=== PATIENT | female | born 1980 | race Caucasian/White ===

== ENCOUNTER 2018-08-31 15:00 | Outpatient (CLI) | payer MEDICAID ==
[2018-08-31] MEDS: DIPHENHYDRAMINE 50 MG CAP PO (16:18)
[2018-08-31] MEDS: LACTATED RINGER'S 1,000 ML IV ×2 (19:00→20:07)
[2018-08-31] MEDS: TERBUTALINE 1 MG/ML INJ SC (20:08)
== END 2018-08-31 21:15 | disposition home or self-care (01) ==
LOC: OBT 15:00 → L-D 15:22 → OBT 21:15
DX: O62.9 Abnormality of forces of labor, unspecified (principal); O09.513 Supervision of elderly primigravida, third trimester; Z3A.30 30 weeks gestation of pregnancy
CPT/HCPCS: 36415; 76817; 76818; 82731; 96360; 96361; 96372

== ENCOUNTER 2018-09-29 14:54 | Inpatient (IN) | payer MEDICAID ==
[2018-09-29 15:48] LABS: ADD UMIC NO; UR ASCORBIC ACID 20 mg/dL (NEGATIVE); UR BILIRUBIN (Dip) NEGATIVE (NEGATIVE); UR BLOOD (Dip) NEGATIVE (NEGATIVE); UR CLARITY CLEAR (CLEAR); UR COLOR YELLOW (YELLOW); UR GLUCOSE (Dip) NEGATIVE (NEGATIVE); UR KETONES (Dip) NEGATIVE (NEGATIVE); UR LEUKOCYTE ESTERASE (Dip) NEGATIVE Leu/ul (NEGATIVE); UR NITRITE (Dip) NEGATIVE (NEGATIVE); UR SPECIFIC GRAVITY (Dip) 1.014 (1.003-1.030); UR TOTAL PROTEIN (Dip) NEGATIVE (NEGATIVE); UR UROBILINOGEN (Dip) NEGATIVE (NEGATIVE)
[2018-09-29] MEDS: LACTATED RINGER'S 1,000 ML IV (16:52)
[2018-09-29] MEDS: MAGNESIUM SULFATE 4 GM/100 ML 100 ML IV (16:54)
[2018-09-29] MEDS: AMPICILLIN 2 GM/NS (PMX) 100 ML IV (17:05)
[2018-09-29] MEDS: MAGNESIUM SULFATE 20 GM/500 ML 500 ML IV (17:21)
[2018-09-29 17:39] LABS: ADD MAN DIFF? NO
[2018-09-29 17:42] LABS: WHITE BLOOD COUNT 7.6 10^3/ul (4.8-10.8)
[2018-09-29 17:42] LABS: BASOPHILS % 0.3 % (0.0-2.0); EOSINOPHILS # 0.1 10^3/ul (0.0-0.5); EOSINOPHILS % 1.1 % (0.0-7.0); HEMATOCRIT 32.6 % (37.0-47.0); HEMOGLOBIN 10.9 g/dl (12.0-16.0); LYMPHOCYTES # 1.4 10^3/ul (0.8-2.9); LYMPHOCYTES % 18.8 % (15.0-51.0); MEAN CORPUSCULAR HEMOGLOBIN 29.9 pg (29.0-33.0); MEAN CORPUSCULAR HGB CONC 33.4 g/dl (32.0-37.0); MEAN CORPUSCULAR VOLUME 89.3 fl (82.0-101.0); MEAN PLATELET VOLUME 10.6 fl (7.4-10.4); MONOCYTE # 0.4 10^3/ul (0.3-0.9); MONOCYTES % 5.4 % (0.0-11.0); NEUTROPHIL # 5.6 10^3/ul (1.6-7.5); PLATELET COUNT 249 10^3/UL (140-415); RED BLOOD COUNT 3.65 10^6/ul (4.20-5.40); RED CELL DISTRIBUTION WIDTH 13.8 % (11.5-14.5)
[2018-09-29 17:59] LABS: INR 0.79; PROTIME 11.1 Sec (11.9-14.9); PT RATIO 0.9
[2018-09-29] MEDS: BETAMET NA PHOS/AC(6 MG/ML) 2 ML INJ SYG IM (17:59)
[2018-09-29 18:00] LABS: PARTIAL THROMBOPLASTIN TIME 27.5 Sec (23.0-35.0)
[2018-09-29 18:02] LABS: ALANINE AMINOTRANSFERASE 41 IU/L (13-69); ALBUMIN 3.6 g/dl (3.3-4.9); ALBUMIN/GLOBULIN RATIO 1.02; ALKALINE PHOSPHATASE 234 IU/L (42-121); ANION GAP 8 (5-13); ASPARTATE AMINO TRANSFERASE 37 IU/L (15-46); BILIRUBIN,INDIRECT 0.2 mg/dl (0-1.1); BILIRUBIN,TOTAL 0.2 mg/dl (0.2-1.3); BLOOD UREA NITROGEN 6 mg/dl (7-20); CALCIUM 9.4 mg/dl (8.4-10.2); CARBON DIOXIDE 22 mmol/L (21-31); CHLORIDE 106 mmol/L (97-110); CREATININE 0.47 mg/dl (0.44-1.00); Estimated GFR > 60 mL/min (>60); GLUCOSE 78 mg/dl (70-220); POTASSIUM 3.8 mmol/L (3.5-5.1); SODIUM 136 mmol/L (135-144); TOTAL PROTEIN 7.1 g/dl (6.1-8.1)
[2018-09-29] MEDS: AMPICILLIN 1 GM/NS (PMX) 50 ML IV (20:48)
[2018-09-29] MEDS: URSODIOL 300 MG CAP PO (20:48)
[2018-09-29 22:16] LABS: RAPID PLASMA REAGIN NONREACTIVE (NR)
[2018-09-30] MEDS: AMPICILLIN 1 GM/NS (PMX) 50 ML IV ×4 (00:57→13:15)
[2018-09-30 01:34] LABS: MAGNESIUM 6.4 mg/dl (1.7-2.5)
[2018-09-30] MEDS: MAGNESIUM SULFATE 20 GM/500 ML 500 ML IV (03:29)
[2018-09-30] MEDS: LACTATED RINGER'S 1,000 ML IV ×3 (04:58→23:10)
[2018-09-30 07:15] LABS: MAGNESIUM 7.2 mg/dl (1.7-2.5)
[2018-09-30] MEDS: DOCUSATE SODIUM 100 MG CAP PO (09:20)
[2018-09-30] MEDS: PRENATAL VITAMIN PO (09:20)
[2018-09-30] MEDS: URSODIOL 300 MG CAP PO ×2 (09:20→13:15)
[2018-09-30] MEDS: FERROUS SULFATE (EC) 325 MG TAB PO (09:20)
[2018-09-30] MEDS: BETAMET NA PHOS/AC(6 MG/ML) 2 ML INJ SYG IM (17:46)
[2018-10-01] MEDS: LACTATED RINGER'S 1,000 ML IV ×3 (08:29→22:35)
[2018-10-01] MEDS: DOCUSATE SODIUM 100 MG CAP PO (09:00)
[2018-10-01] MEDS: FERROUS SULFATE (EC) 325 MG TAB PO (09:00)
[2018-10-01] MEDS: PRENATAL VITAMIN PO (09:00)
[2018-10-02] MEDS: LACTATED RINGER'S 1,000 ML IV ×3 (06:37→19:00)
[2018-10-02] MEDS: PRENATAL VITAMIN PO (09:20)
[2018-10-02] MEDS: FERROUS SULFATE (EC) 325 MG TAB PO (09:20)
[2018-10-02] MEDS: DOCUSATE SODIUM 100 MG CAP PO (09:20)
[2018-10-03] MEDS: LACTATED RINGER'S 1,000 ML IV (01:44)
== END 2018-10-03 09:42 | disposition home or self-care (01) | DRG 833 ==
LOC: OBT 14:54 → L-D 14:54 → OBT 16:20 → L-D 16:20
DX: O60.03 Preterm labor without delivery, third trimester (principal); O76 Abnormality in fetal heart rate and rhythm complicating labor and delivery; Z3A.34 34 weeks gestation of pregnancy; O09.513 Supervision of elderly primigravida, third trimester
CPT/HCPCS: 76815; 76817; 76818; 80053; 81003; 83735; 85025; 85610; 85730; 86592; 86850; 86900; 86901; 87081

== ENCOUNTER 2018-10-13 12:38 | Outpatient (CLI) | payer MEDICAID ==
[2018-10-13 14:10] LABS: ADD UMIC NO; UR ASCORBIC ACID 40 mg/dL (NEGATIVE); UR BACTERIA FEW /HPF (NONE SEEN); UR BILIRUBIN (Dip) NEGATIVE (NEGATIVE); UR BLOOD (Dip) NEGATIVE (NEGATIVE); UR CLARITY SLIGHTLY CLOUDY (CLEAR); UR COLOR YELLOW (YELLOW); UR GLUCOSE (Dip) NEGATIVE (NEGATIVE); UR KETONES (Dip) NEGATIVE (NEGATIVE); UR LEUKOCYTE ESTERASE (Dip) NEGATIVE Leu/ul (NEGATIVE); UR MUCUS FEW /HPF (NONE SEEN); UR NITRITE (Dip) NEGATIVE (NEGATIVE); UR RBC 0 /HPF (0-5); UR SPECIFIC GRAVITY (Dip) 1.013 (1.003-1.030); UR TOTAL PROTEIN (Dip) NEGATIVE (NEGATIVE); UR UROBILINOGEN (Dip) NEGATIVE (NEGATIVE); UR WBC 1 /HPF (0-5)
== END 2018-10-13 15:49 | disposition home or self-care (01) ==
LOC: OBT 12:38 → L-D 12:38 → OBT 15:49
DX: O62.9 Abnormality of forces of labor, unspecified (principal); Z3A.36 36 weeks gestation of pregnancy
CPT/HCPCS: 76818; 81001; 81003

== ENCOUNTER 2018-10-27 06:00 | Inpatient (IN) | payer MEDICAID ==
[2018-10-27 07:13] LABS: ADD UMIC YES; UR ASCORBIC ACID NEGATIVE (NEGATIVE); UR BACTERIA MODERATE /HPF (NONE SEEN); UR BILIRUBIN (Dip) NEGATIVE (NEGATIVE); UR BLOOD (Dip) 1+ mg/dL (NEGATIVE); UR CLARITY CLEAR (CLEAR); UR COLOR STRAW (YELLOW); UR GLUCOSE (Dip) NEGATIVE (NEGATIVE); UR KETONES (Dip) NEGATIVE (NEGATIVE); UR LEUKOCYTE ESTERASE (Dip) NEGATIVE Leu/ul (NEGATIVE); UR NITRITE (Dip) NEGATIVE (NEGATIVE); UR RBC 0 /HPF (0-5); UR SPECIFIC GRAVITY (Dip) 1.004 (1.003-1.030); UR TOTAL PROTEIN (Dip) NEGATIVE (NEGATIVE); UR UROBILINOGEN (Dip) NEGATIVE (NEGATIVE); UR WBC 1 /HPF (0-5)
[2018-10-27] MEDS ORDERED: IBUPROFEN 600 MG TAB PO (10:00)
[2018-10-27] MEDS ORDERED: MISOPROSTOL 200 MCG TAB PR (10:00)
[2018-10-27] MEDS ORDERED: METHYLERGONOVINE 0.2 MG INJ IM (10:00)
[2018-10-27] MEDS ORDERED: CARBOPROST 250 MCG INJ IM (10:00)
[2018-10-27] MEDS ORDERED: OXYTOCIN 30 UNITS/LR 500 ML IV ×2 (10:00)
[2018-10-27] MEDS: LACTATED RINGER'S 1,000 ML IV ×2 (11:16→15:31)
[2018-10-27 11:48] LABS: ADD MAN DIFF? NO
[2018-10-27 11:53] LABS: WHITE BLOOD COUNT 7.3 10^3/ul (4.8-10.8)
[2018-10-27 11:53] LABS: BASOPHILS % 0.3 % (0.0-2.0); EOSINOPHILS % 0.6 % (0.0-7.0); HEMATOCRIT 33.4 % (37.0-47.0); HEMOGLOBIN 11.2 g/dl (12.0-16.0); LYMPHOCYTES # 1.1 10^3/ul (0.8-2.9); LYMPHOCYTES % 15.6 % (15.0-51.0); MEAN CORPUSCULAR HGB CONC 33.5 g/dl (32.0-37.0); MEAN CORPUSCULAR VOLUME 89.5 fl (82.0-101.0); MEAN PLATELET VOLUME 11.1 fl (7.4-10.4); MONOCYTE # 0.4 10^3/ul (0.3-0.9); MONOCYTES % 5.5 % (0.0-11.0); NEUTROPHIL # 5.6 10^3/ul (1.6-7.5); NEUTROPHILS % 77.2 % (39.0-77.0); PLATELET COUNT 176 10^3/UL (140-415); RED BLOOD COUNT 3.73 10^6/ul (4.20-5.40); RED CELL DISTRIBUTION WIDTH 14.6 % (11.5-14.5)
[2018-10-27 12:12] LABS: INR 0.74; PROTIME 10.5 Sec (11.9-14.9); PT RATIO 0.8
[2018-10-27 12:13] LABS: PARTIAL THROMBOPLASTIN TIME 28.5 Sec (23.0-35.0)
[2018-10-27 12:53] LABS: HEPATITIS B SURFACE ANTIGEN NEGATIVE (NEGATIVE)
[2018-10-27] MEDS ORDERED: AMPICILLIN 1 GM/NS (PMX) 50 ML IV (14:00)
[2018-10-27] MEDS: BUTORPHANOL 2 MG INJ IV (17:44)
[2018-10-27] MEDS ORDERED: HYDROmorphONE 0.5 MG/0.5 ML SYG IV ×2 (19:00)
[2018-10-27] MEDS ORDERED: FENTAnyl 2MCG/ML-ROPIV 0.2% 100 ML BAG EPI (19:00)
[2018-10-27] MEDS ORDERED: ZOLPIDEM 5 MG TAB PO (19:00)
[2018-10-27] MEDS ORDERED: ONDANSETRON 4 MG INJ IV (19:00)
[2018-10-27] MEDS ORDERED: DIPHENHYDRAMINE 50 MG INJ IV (19:00)
[2018-10-27] MEDS ORDERED: KETOROLAC 30 MG INJ IV (19:00)
[2018-10-27] MEDS ORDERED: NALOXONE (0.4 MG/ML) INJ IV (19:00)
[2018-10-27 19:45] LABS: RAPID PLASMA REAGIN NONREACTIVE (NR)
[2018-10-27] MEDS: OXYTOCIN 30 UNITS/LR 500 ML IV (21:31)
[2018-10-28] MEDS: LACTATED RINGER'S 1,000 ML IV (00:54)
[2018-10-28] MEDS ORDERED: DEXTROSE 5%-LR 1,000 ML IV (03:00)
[2018-10-28] MEDS ORDERED: ACETAMINOPHEN 325 MG TAB PO (04:00)
[2018-10-28] MEDS ORDERED: MAGNESIUM HYDROXIDE 30ML CUP PO (04:00)
[2018-10-28] MEDS ORDERED: GENTAMICIN 80 MG in SOD CHLORIDE 0.9% 100 ML IV (04:00)
[2018-10-28] MEDS ORDERED: OXYTOCIN 30 UNITS/LR 500 ML IV (04:00)
[2018-10-28] MEDS ORDERED: NACL 0.9% 3 ML SYG IV (04:00)
[2018-10-28] MEDS ORDERED: ONDANSETRON 4 MG INJ IV (04:00)
[2018-10-28] MEDS ORDERED: DIPHENHYDRAMINE 25 MG CAP PO (04:00)
[2018-10-28] MEDS ORDERED: CARBOPROST 250 MCG INJ IM (04:00)
[2018-10-28] MEDS ORDERED: DIBUCAINE 1% 30 GM OINT TOP (04:00)
[2018-10-28] MEDS ORDERED: METHYLERGONOVINE 0.2 MG INJ IM (04:00)
[2018-10-28] MEDS ORDERED: OXYCODONE/ASPIRIN (4.88/325) TAB PO ×2 (04:00)
[2018-10-28] MEDS ORDERED: MISOPROSTOL 200 MCG TAB PR (04:00)
[2018-10-28] MEDS: ACETAMINOPHEN 500 MG TAB PO (04:24)
[2018-10-28] MEDS: LIDOCAINE 1% (MPF) 30 ML INJ INJ (04:47)
[2018-10-28] MEDS: OXYTOCIN 30 UNITS/LR 500 ML IV ×2 (04:50→10:15)
[2018-10-28] MEDS: AMPICILLIN 2 GM/NS (PMX) 100 ML IVPB (04:52)
[2018-10-28] MEDS: GENTAMICIN 80 MG/NS (PMX) 50 ML IVPB ×3 (06:13→22:16)
[2018-10-28] MEDS: AMPICILLIN 2 GM/NS (PMX) 100 ML IV ×4 (08:12→17:54)
[2018-10-28] MEDS: WITCH HAZEL/GLYCERIN PAD PR (08:43)
[2018-10-28] MEDS: BENZOCAINE 20% 56 ML SPRAY TOP (08:43)
[2018-10-28] MEDS: LANOLIN HPA 1 PKT TOP (08:43)
[2018-10-28] MEDS: SENNA/DOCUSATE NA (8.6MG/50MG) TAB PO ×2 (08:44→21:34)
[2018-10-28] MEDS: IBUPROFEN 600 MG TAB PO ×2 (13:26→18:30)
[2018-10-29] MEDS: IBUPROFEN 600 MG TAB PO ×5 (00:09→23:43)
[2018-10-29] MEDS: AMPICILLIN 2 GM/NS (PMX) 100 ML IV (00:10)
[2018-10-29 06:43] LABS: ADD MAN DIFF? NO
[2018-10-29 06:49] LABS: BASOPHILS % 0.3 % (0.0-2.0); EOSINOPHILS # 0.1 10^3/ul (0.0-0.5); EOSINOPHILS % 0.8 % (0.0-7.0); HEMATOCRIT 28.5 % (37.0-47.0); HEMOGLOBIN 9.4 g/dl (12.0-16.0); LYMPHOCYTES # 1.3 10^3/ul (0.8-2.9); LYMPHOCYTES % 12.4 % (15.0-51.0); MEAN CORPUSCULAR HEMOGLOBIN 29.8 pg (29.0-33.0); MEAN CORPUSCULAR VOLUME 90.5 fl (82.0-101.0); MEAN PLATELET VOLUME 10.6 fl (7.4-10.4); MONOCYTE # 0.5 10^3/ul (0.3-0.9); MONOCYTES % 4.4 % (0.0-11.0); NEUTROPHIL # 8.3 10^3/ul (1.6-7.5); PLATELET COUNT 176 10^3/UL (140-415); RED BLOOD COUNT 3.15 10^6/ul (4.20-5.40)
[2018-10-29 06:49] LABS: WHITE BLOOD COUNT 10.3 10^3/ul (4.8-10.8)
[2018-10-29] MEDS: SENNA/DOCUSATE NA (8.6MG/50MG) TAB PO ×2 (09:10→21:24)
[2018-10-30] MEDS: IBUPROFEN 600 MG TAB PO ×3 (05:38→17:54)
[2018-10-30] MEDS: SENNA/DOCUSATE NA (8.6MG/50MG) TAB PO (08:18)
== END 2018-10-30 18:37 | disposition home or self-care (01) | DRG 807 ==
LOC: OBT 06:00 → PP1 10-28 06:22 → L-D 06:00 → OBT 09:31 → L-D 09:28
PROC: 10E0XZZ Delivery of Products of Conception, External Approach (ICD-10-PCS; principal; 2018-10-28)
PROC: 0HQ9XZZ Repair Perineum Skin, External Approach (ICD-10-PCS; 2018-10-28)
DX: O69.81X0 Labor and delivery complicated by cord around neck, without compression, not applicable or unspecified (principal); Z37.0 Single live birth; O70.0 First degree perineal laceration during delivery; Z3A.38 38 weeks gestation of pregnancy
CPT/HCPCS: 62319; 76815; 76818; 81001; 85025; 85610; 85730; 86592; 86850; 86900; 86901; 87340; 90686; 99464